=== PATIENT | male | born 2000 | race Caucasian/White ===

== ENCOUNTER 2023-11-13 21:02 | Emergency (ER) | payer MEDICAID ==
[~2023-11-13] VITALS: Ht 162.6 cm; Wt 62.7 kg
[2023-11-13 21:10] VITALS: BP 110/71; PULSE 66; RESP 14; TEMP 98.3; O2SAT 99
== END 2023-11-13 21:32 | disposition home or self-care (01) ==
LOC: ER 21:03
DX: Z04.2 Encounter for examination and observation following work accident (principal)
CPT/HCPCS: 99283